=== PATIENT | male | born 1995 | race Asian ===

== ENCOUNTER 2017-10-14 08:18 | Emergency (ER) | payer SELFPAY ==
[2017-10-14] MEDS: IBUPROFEN 800 MG TAB PO (09:14)
== END 2017-10-14 10:37 | disposition home or self-care (01) ==
LOC: FTE 08:18
DX: R07.89 Other chest pain (principal); R06.02 Shortness of breath; M54.9 Dorsalgia, unspecified; J02.9 Acute pharyngitis, unspecified; R05 Cough
CPT/HCPCS: 71045; 87400; 87880; 93005; 99285-25

== ENCOUNTER 2018-03-25 12:01 | Emergency (ER) | payer OTHER ==
[2018-03-25] MEDS: HYDROCODONE/APAP (5/325) TAB PO (12:46)
== END 2018-03-25 13:53 | disposition home or self-care (01) ==
LOC: FTE 12:01
DX: S69.91XA Unspecified injury of right wrist, hand and finger(s), initial encounter (principal); F17.210 Nicotine dependence, cigarettes, uncomplicated; W18.2XXA Fall in (into) shower or empty bathtub, initial encounter; Y92.009 Unspecified place in unspecified non-institutional (private) residence as the place of occurrence of the external cause
CPT/HCPCS: 73110; 73110-RT; 99283-25

== ENCOUNTER 2018-07-06 19:10 | Emergency (ER) | payer OTHER ==
[2018-07-06 19:36] LABS: URINE BLOOD (Dip) POC 2+ (NEGATIVE); URINE GLUCOSE (Dip) POC Negative (NEGATIVE); URINE KETONES (Dip) POC Negative (NEGATIVE); URINE LEUKOCYTE EST (Dip) POC 2+ (NEGATIVE); URINE NITRITE (Dip) POC Negative (NEGATIVE); URINE TOTAL PROTEIN POC Negative (NEGATIVE)
[2018-07-06 20:09] LABS: ADD UMIC YES; UR ASCORBIC ACID NEGATIVE (NEGATIVE); UR BACTERIA FEW /HPF (NONE SEEN); UR BILIRUBIN (Dip) NEGATIVE (NEGATIVE); UR BLOOD (Dip) 2+ mg/dL (NEGATIVE); UR BUDDING YEAST FEW /HPF (NONE SEEN); UR CLARITY CLEAR (CLEAR); UR COLOR STRAW (YELLOW); UR GLUCOSE (Dip) NEGATIVE (NEGATIVE); UR KETONES (Dip) NEGATIVE (NEGATIVE); UR LEUKOCYTE ESTERASE (Dip) 3+ Leu/ul (NEGATIVE); UR NITRITE (Dip) NEGATIVE (NEGATIVE); UR RBC 2 /HPF (0-5); UR SPECIFIC GRAVITY (Dip) 1.004 (1.003-1.030); UR TOTAL PROTEIN (Dip) NEGATIVE (NEGATIVE); UR UROBILINOGEN (Dip) NEGATIVE (NEGATIVE); UR WBC 52 /HPF (0-5)
[2018-07-06] MEDS: KETOROLAC 15 MG INJ IV (20:16)
[2018-07-06] MEDS: CEFTRIAXONE 1 GM/50 ML (PMX) 50 ML IVPB (20:16)
[2018-07-06] MEDS: AZITHROMYCIN 250 MG TAB PO (20:16)
[2018-07-06] MEDS: ONDANSETRON 4 MG INJ IV (20:16)
[2018-07-06] MEDS: SOD CHLORIDE 0.9% 1,000 ML IV (20:17)
[2018-07-06 20:43] LABS: ADD MAN DIFF? NO
[2018-07-06 20:48] LABS: BASOPHILS % 0.2 % (0.0-2.0); EOSINOPHILS # 0.3 10^3/ul (0.0-0.5); EOSINOPHILS % 2.1 % (0.0-7.0); HEMATOCRIT 45.8 % (42.0-52.0); HEMOGLOBIN 15.3 g/dl (14.0-18.0); LYMPHOCYTES # 2.7 10^3/ul (0.8-2.9); LYMPHOCYTES % 17.3 % (15.0-51.0); MEAN CORPUSCULAR HEMOGLOBIN 29.4 pg (29.0-33.0); MEAN CORPUSCULAR HGB CONC 33.4 g/dl (32.0-37.0); MEAN CORPUSCULAR VOLUME 88.1 fl (82.0-101.0); MEAN PLATELET VOLUME 10.8 fl (7.4-10.4); MONOCYTE # 1.4 10^3/ul (0.3-0.9); MONOCYTES % 9.3 % (0.0-11.0); NEUTROPHIL # 10.9 10^3/ul (1.6-7.5); NEUTROPHILS % 70.6 % (39.0-77.0); PLATELET COUNT 186 10^3/UL (140-415); RED CELL DISTRIBUTION WIDTH 12.7 % (11.5-14.5)
[2018-07-06 20:48] LABS: WHITE BLOOD COUNT 15.4 10^3/ul (4.8-10.8)
[2018-07-06 21:08] LABS: INR 0.91; PROTIME 12.3 Sec (11.9-14.9)
[2018-07-06 21:09] LABS: PARTIAL THROMBOPLASTIN TIME 28.6 Sec (23.0-35.0)
[2018-07-06 21:11] LABS: ALANINE AMINOTRANSFERASE 25 IU/L (13-69); ALBUMIN 5.2 g/dl (3.3-4.9); ALBUMIN/GLOBULIN RATIO 1.33; ALKALINE PHOSPHATASE 68 IU/L (42-121); ANION GAP 16 (8-16); ASPARTATE AMINO TRANSFERASE 27 IU/L (15-46); BILIRUBIN,INDIRECT 0.3 mg/dl (0-1.1); BILIRUBIN,TOTAL 0.3 mg/dl (0.2-1.3); BLOOD UREA NITROGEN 12 mg/dl (7-20); CALCIUM 10.2 mg/dl (8.4-10.2); CARBON DIOXIDE 30 mmol/L (21-31); CHLORIDE 102 mmol/L (97-110); GLUCOSE 98 mg/dl (70-220); LIPASE 43 U/L (23-300); POTASSIUM 3.8 mmol/L (3.5-5.1); SODIUM 144 mmol/L (135-144); TOTAL PROTEIN 9.1 g/dl (6.1-8.1)
== END 2018-07-06 21:58 | disposition home or self-care (01) ==
LOC: FTE 19:10
DX: N39.0 Urinary tract infection, site not specified (principal); F17.210 Nicotine dependence, cigarettes, uncomplicated; R10.9 Unspecified abdominal pain
CPT/HCPCS: 74176; 76870; 80053; 81001; 81003; 83690; 85025; 85610; 85730; 87591; 96365; 96375; 99285-25

== ENCOUNTER 2018-09-22 12:38 | Emergency (ER) | payer OTHER ==
[2018-09-22] MEDS: ONDANSETRON (ODT) 4 MG TAB ODT (13:32)
[2018-09-22] MEDS: KETOROLAC 30 MG INJ IM (13:32)
[2018-09-22 14:09] LABS: URINE PH (Dip) POC 8.5 (5.0-8.5)
[2018-09-22 14:09] LABS: URINE BLOOD (Dip) POC Negative (NEGATIVE); URINE GLUCOSE (Dip) POC Negative (NEGATIVE); URINE KETONES (Dip) POC Negative (NEGATIVE); URINE LEUKOCYTE EST (Dip) POC Negative (NEGATIVE); URINE NITRITE (Dip) POC Negative (NEGATIVE); URINE TOTAL PROTEIN POC 2+ (NEGATIVE)
== END 2018-09-22 14:57 | disposition home or self-care (01) ==
LOC: FTE 14:57
DX: R11.10 Vomiting, unspecified (principal); R51 Headache; F17.210 Nicotine dependence, cigarettes, uncomplicated; R07.89 Other chest pain
CPT/HCPCS: 81003; 93005; 96372; 99284-25

== ENCOUNTER 2018-12-29 08:08 | Emergency (ER) | payer OTHER ==
[2018-12-29] MEDS: ACETAMINOPHEN 500 MG TAB PO (08:38)
[2018-12-29] MEDS: IBUPROFEN 800 MG TAB PO (08:38)
== END 2018-12-29 08:44 | disposition home or self-care (01) ==
LOC: FTE 08:08
DX: J02.9 Acute pharyngitis, unspecified (principal); F17.210 Nicotine dependence, cigarettes, uncomplicated; J45.909 Unspecified asthma, uncomplicated
CPT/HCPCS: 99283

== ENCOUNTER 2018-12-31 02:29 | Emergency (ER) | payer OTHER | END 2018-12-31 06:38 | disposition home or self-care (01) | LOC: FTE 02:29 | DX: J32.9 Chronic sinusitis, unspecified (principal); J40 Bronchitis, not specified as acute or chronic; Z87.891 Personal history of nicotine dependence | CPT/HCPCS: 99283 ==

== ENCOUNTER 2019-05-13 23:17 | Emergency (ER) | payer OTHER ==
[2019-05-14] MEDS ORDERED: KETOROLAC 60 MG INJ IM (00:14)
== END 2019-05-14 00:45 | disposition left against medical advice (07) ==
LOC: E/R 05-14 00:45
DX: R07.89 Other chest pain (principal); J45.909 Unspecified asthma, uncomplicated; F17.210 Nicotine dependence, cigarettes, uncomplicated
CPT/HCPCS: 93005; 99283; 99283-25